=== PATIENT | male | born 1965 | race Hispanic/Latino ===

== ENCOUNTER → 2018-09-13 | Day surgery (SDC) | payer BC ==
[2018-09-11 10:12] LABS: BASOPHILS # (AUTO) 0.1 (0.0-0.1); BASOPHILS % 0.7 % (0.0-1.0); EOSINOPHILS # (AUTO) 0.3 (0.0-0.4); EOSINOPHILS % 3.6 % (0.0-6.0); HEMATOCRIT 43.5 % (38.2-49.6); HEMOGLOBIN 14.8 g/dL (14.0-18.0); LYMPHOCYTES % 23.4 % (18.0-39.1); MEAN CORPUSCULAR HEMOGLOBIN 30.8 pg (28-32); MEAN CORPUSCULAR VOLUME 90.6 fL (81-99); MONOCYTES # (AUTO) 0.9 (0.2-0.8); NEUTROPHILS # (AUTO) 5.4 (2.1-6.9); NEUTROPHILS % 61.8 % (38.7-80.0); PLATELET COUNT 229 x10e3/uL (140-360); RED CELL DISTRIBUTION WIDTH 12.4 % (11.7-14.4)
[~2018-09-13] MED LIST: ASPIRIN81 MG PO; ATORVASTATIN CA20 MG PO; BRILINTA90 MG PO; CARVEDILOL3.125 MG PO; ENTRESTO PO; KETAMINE HCL INJ 50 MG/ML 10 ML VIAL ONE; LIDOCAINE HCL 2% LOCAL INJ 5 ML SDV VIAL INJ ONE; LISINOPRIL2.5 MG PO; MIDAZOLAM HCL 2 MG/2 ML VIAL ONE; PROPOFOL IV EMULSION 10 MG/ML 50 ML VIAL ONE
--- OUTSIDE RECORDS SUMMARY | 2018-09-13 06:53 | XMS REPORT ---
[facility] Address Unknown Phone Unavailable Care Team Providers Care Certified Nursing Assistant Instructor Name Role Phone Unavailable Unavailable Payers Payer Name Policy Type Policy Number Effective Date Expiration Date Problems This patient has no known problems. Allergies, Adverse Reactions, Alerts Allergy Name Allergy Type Status Severity Reaction(s) Onset Date Inactive Date Treating Clinician Comments No Known Allergies DA Active U 2018-07-01 00:00:00 Medications This patient has no known medications.
--- OUTSIDE RECORDS SUMMARY | 2018-09-13 06:53 | XMS REPORT | Continuity of Care Document ---
Author Author [facility] Interface Address Unknown Phone Unavailable Problems Problem Status Onset Date Classification Date Reported Comments Source FOLLOW UP Active 04/26/2017 [facility] ACUTE ST ELEVATION MYOCARDIAL INFARCTION Active 04/20/2017 [facility] ST ELEVATION (STEMI) MYOCARDIAL INFARCTI Active [facility] Medications Medication Details Route Status Patient Instructions Ordering Provider Order Date Source ticagrelor 90 mg oral tablet 90 mg=1 tab, PO, Q12H, # 180 tab, 3 Refill(s), Pharmacy: [id number] Active 04/23/2017 [facility] lisinopril 5 mg oral tablet 5 mg=1 tab, PO, Daily, # 90 tab, 3 Refill(s), Pharmacy: [facility] Active 04/23/2017 [facility] carvedilol 3.125 mg oral tablet 3.125 mg=1 tab, PO, Q12H, # 180 tab, 3 Refill(s), Pharmacy: [id number] Active 04/23/2017 [facility] atorvastatin 40 mg oral tablet 40 mg=1 tab, PO, Bedtime, # 90 tab, 3 Refill(s), Pharmacy: [facility] Active 04/23/2017 [facility] aspirin 81 mg tablet, enteric coated 81 mg=1 tab, PO, Daily, # 90 tab, 3 Refill(s), Pharmacy: [id number] Active 04/23/2017 [facility] Mupirocin 1 appl, Route: NASAL, Q12H, Drug form: OINT, Start date: 04/21/17 21:00:00 CDT, Duration: 10 doses or times, Stop date: 04/26/17 9:00:00 CDT, MRSA Decolonization No Longer Active 04/22/2017 [facility] Magnesium Sulfate 1 gm, 100 mL, Route: IVPB, Drug form: INJ, PRN, Dosing Weight 107, kg, PRN Abnormal Lab Result, For NON-ICU Patients Only., Start date: 04/21/17 11:11:00 CDT, Duration: 30 day, Stop date: 05/21/17 11:10:00 CDTNotes: WASTE: F/P - Sink; E - Municipal Trash Bin No Longer Active 04/21/2017 [facility] sodium phosphate + sodium chloride 0.9% INJ 250 mL 15 mmol, 5 mL, Route: IVPB, PRN, Dosing Weight 107, kg, PRN Abnormal Lab Result, For NON-ICU Patients Only., Start date: 04/21/17 11:11:00 CDT, Duration: 30 day, Stop date: 05/21/17 11:10:00 CDT No Longer Active 04/21/2017 [facility] potassium phosphate + sodium chloride 0.9% INJ 250 mL 15 mmol, 5 mL, Route: IVPB, PRN, Dosing Weight 107, kg, PRN Abnormal Lab Result, For NON-ICU Patients Only., Start date: 04/21/17 11:11:00 CDT, Duration: 30 day, Stop date: 05/21/17 11:10:00 CDTNotes: (Same as: K Phosphate.) 1 mMol phoshate has 1.47 mEq potassium Infuse over 4 hours No Longer Active 04/21/2017 [facility] Calcium Gluconate 3 gm, 30 mL, Route: IVPB, PRN, Dosing Weight 107, kg, PRN Abnormal Lab Result, For NON-ICU Patients Only., Start date: 04/21/17 11:11:00 CDT, Duration: 30 day, Stop date: 05/21/17 11:10:00 CDTNotes: WASTE: F/P - Sink; E - Municipal Trash Bin No Longer Active 04/21/2017 [facility] Magnesium Oxide 800 mg, 2 tab, Route: PO, Drug form: TAB, PRN, Dosing Weight 107, kg, PRN Abnormal Lab Result, For NON-ICU Patients Only., Start date: 04/21/17 11:11:00 CDT, Duration: 30 day, Stop date: 05/21/17 11:10:00 CDTNotes: (Same as: Mag-Ox 400) Magnesium oxide [id number] elemental magnesium Dose=____mg magnesium oxide (___mg elemental magnesium) No Longer Active 04/21/2017 [facility] potassium phosphate-sodium phosphate 250 mg-280 mg-160 mg oral powder for reconstitution 2 pkt, Route: PO, Drug Form: PDR/REC, Dosing Weight 107, kg, PRN, PRN Abnormal Lab Result, For NON-ICU Patients Only, Start date: 04/21/17 11:11:00 CDT, Duration: 30 day, Stop date: 05/21/17 11:10:00 CDTNotes: (Same as: Phos-NaK) Each 1.5 gm pkt has 250mg phosphorous. Mix w/2.5oz water and stir. No Longer Active 04/21/2017 [facility] potassium chloride 20 mEq, 15 mL, Route: NJ, Drug form: LIQ, PRN, Dosing Weight 107, kg, PRN Abnormal Lab Result, For NON-ICU Patients Only, Start date: 04/21/17 11:11:00 CDT, Duration: 30 day, Stop date: 05/21/17 11:10:00 CDTNotes: (Same as: Potassium Chloride) No Longer Active 04/21/2017 [facility] Lisinopril 5 mg, 1 tab, Route: PO, Drug form: TAB, Daily, Dosing Weight 107.273, kg, Start date: 04/21/17 9:00:00 CDT, Duration: 30 day, Stop date: 05/20/17 9:00:00 CDTNotes: (Same as: Prinivil, Zestril) No Longer Active 04/21/2017 [facility] Aspirin 325 MG Oral Tablet 325 mg, 1 tab, Route: PO, Drug form: TAB, Daily, Dosing Weight 107.273, kg, Start date: 04/21/17 9:00:00 CDT, Duration: 30 day, Stop date: 05/20/17 9:00:00 CDTNotes: Take with food. No Longer Active 04/21/2017 [facility] Ticagrelor 90 mg, 1 tab, Route: PO, Drug form: TAB, Q12H, Dosing Weight 107.273, kg, Start date: 04/21/17 0:00:00 CDT, Duration: 30 day, Stop date: 05/20/17 12:00:00 CDTNotes: (Same as: Brilinta) No Longer Active 04/21/2017 [facility] heparin 5,000 unit, 1 mL, Route: SUB-Q, Drug form: INJ, Q12H, Dosing Weight 107.273, kg, Start date: 04/20/17 21:00:00 CDT, Duration: 30 day, Stop date: 05/20/17 9:00:00 CDTNotes: porcine heparin No Longer Active 04/21/2017 [facility] Docusate Sodium 100 MG Oral Capsule 100 mg, 1 cap, Route: PO, Drug form: CAP, Q12H, Dosing Weight 107.273, kg, Start date: 04/20/17 21:00:00 CDT, Duration: 30 day, Stop date: 05/20/17 9:00:00 CDTNotes: (Same as: Colace) (Do Not Crush) No Longer Active 04/21/2017 [facility] atorvastatin 40 mg, 1 tab, Route: PO, Drug form: TAB, Bedtime, Dosing Weight 107.273, kg, Start date: 04/20/17 21:00:00 CDT, Duration: 30 day, Stop date: 05/19/17 21:00:00 CDTNotes: (Same as: Lipitor) No Longer Active 04/21/2017 [facility] carvedilol 3.125 mg, 1 tab, Route: PO, Drug form: TAB, Q12H, Dosing Weight 107.273, kg, Start date: 04/20/17 21:00:00 CDT, Duration: 30 day, Stop date: 05/20/17 9:00:00 CDTNotes: Give with food. (Same As: Coreg) No Longer Active 04/21/2017 [facility] pantoprazole 40 mg, 1 tab, Route: PO, Drug form: ECTAB, Before Dinner, Dosing Weight 107.273, kg, Start date: 04/20/17 16:30:00 CDT, Duration: 30 day, Stop date: 05/19/17 16:30:00 CDTNotes: Tablet should not be c hewed or crushed. (Same as: Protonix) No Longer Active 04/20/2017 [facility] Aspirin 81 MG Chewable Tablet 324 mg, 4 tab, Route: PO, Drug form: CHEWTAB, ONCALL, Dosing Weight 107, kg, Start date: 04/20/17 15:00:00 CDT, Duration: 30 day, Stop date: 05/20/17 14:59:00 CDT Inactive 04/20/2017 [facility] Zofran 4 mg, 2 mL, Route: IVP, Drug form: INJ, Q8H, Dosing Weight 107, kg, PRN Nausea, Start date: 04/20/17 14:38:00 CDT, Duration: 30 day, Stop date: 05/20/17 14:37:00 CDTNotes: (Same as: Zofran) MEDICATION WASTE Product Size: 4 mg Product Wasted: ___ mg No Longer Active 04/20/2017 [facility] Tylenol 650 mg, 2 tab, Route: PO, Drug form: TAB, Q6H, Dosing Weight 107, kg, PRN Pain Score 1-3, Start date: 04/20/17 14:38:00 CDT, Duration: 30 day, Stop date: 05/20/17 14:37:00 CDTNotes: Do not exceed 4 gm/day. (Same as: Tylenol) No Longer Active 04/20/2017 [facility] Ticagrelor 180 mg, Route: PO, Drug form: TAB, ONCE, Dosing Weight 107.273, kg, Loading dose, Start date: 04/20/17 14:38:00 CDT, Stop date: 04/20/17 14:38:00 CDT Inactive 04/20/2017 [facility] Tessalon Perles 200 mg, 2 cap, Route: PO, Drug form: CAP, TID, Dosing Weight 107, kg, PRN Cough, Start date: 04/20/17 14:37:00 CDT, Duration: 30 day, Stop date: 05/20/17 14:36:00 CDTNotes: (Same As: Tessalon Perles) "Do Not Crush" No Longer Active 04/20/2017 [facility] Dulcolax Laxative 5 mg, 1 tab, Route: PO, Drug form: ECTAB, ONCE, Dosing Weight 107, kg, PRN Constipation, Start date: 04/20/17 14:37:00 CDTNotes: (Same As: Dulcolax, Correctol) (Do Not Crush) "Do Not Crush" No Longer Active 04/20/2017 [facility] Benzocaine 15 MG / Menthol 3.6 MG Lozenge [Cepacol Sore Throat Pain Relief 15/3.6] 1 lozenge, Route: MUCOUS MEM, Drug Form: SILVIA, Dosing Weight 107, kg, Q2H, PRN Sore Throat, Start date: 04/20/17 14:37:00 CDT, Duration: 30 day, Stop date: 05/20/17 14:36:00 CDTNotes: Same as: Cepacol No Longer Active 04/20/2017 [facility] Hydralazine 10 mg, 0.5 mL, Route: IV, Drug form: INJ, Q6H, Dosing Weight 107, kg, PRN Hypertension, Start date: 04/20/17 13:05:00 CDT, Duration: 30 day, Stop date: 05/20/17 13:04:00 CDTNotes: (Same as: Apresoline) Push over 5 minutes No Longer Active 04/20/2017 [facility] Ticagrelor 180 mg, 2 tab, Route: PO, Drug form: TAB, ONCE, Dosing Weight 107.273, kg, Loading dose, Start date: 04/20/17 11:50:00 CDT, Stop date: 04/20/17 11:50:00 CDTNotes: (Same as: Brilinta) Inactive 04/20/2017 [facility] Nitroglycerin 0.4 mg, 1 tab, Route: SL, Drug form: TAB, Q5Min, Dosing Weight 107.273, kg, PRN Chest Pain, Start date: 04/20/17 11:40:00 CDT, Duration: 3 doses or times, Stop date: Limited # of timesNotes: (Same as:Oliver Hicks) "Do Not Crush" Sublingual tablet No Longer Active 04/20/2017 [facility] Morphine 2 mg, 1 mL, Route: IVP, Drug form: INJ, Q2H, Dosing Weight 107.273, kg, PRN Pain Score 4-6, Start date: 04/20/17 11:40:00 CDT, Duration: 30 day, Stop date: 05/20/17 11:39:00 CDTNotes: (Same as:MORPhine Sulfate) No Longer Active 04/20/2017 [facility] Acetaminophen 325 MG / Hydrocodone Bitartrate 5 MG Oral Tablet 2 tab, Route: PO, Drug Form: TAB, Dosing Weight 107.273, kg, Q4H, PRN Pain Score 7-10, Start date: 04/20/17 11:40:00 CDT, Duration: 30 day, Stop date: 05/20/17 11:39:00 CDTNotes: (Same as: [place] 325/5) Do not exceed 4gm/day of acetaminophen. No Longer Active 04/20/2017 [facility] Temazepam 15 mg, 1 cap, Route: PO, Drug form: CAP, Bedtime, Dosing Weight 107.273, kg, PRN Insomnia, Start date: 04/20/17 11:40:00 CDT, Duration: 30 day, Stop date: 05/20/17 11:39:00 CDTNotes: (Same As: Restoril) No Longer Active 04/20/2017 [facility] Acetaminophen 650 mg, 2 tab, Route: PO, Drug form: TAB, Q4H, Dosing Weight 107.273, kg, PRN Pain Score 1-3, Start date: 04/20/17 11:40:00 CDT, Duration: 30 day, Stop date: 05/20/17 11:39:00 CDTNotes: Do not exceed 4 gm/day. (Same as: Tylenol) Inactive 04/20/2017 [facility] Ondansetron 4 mg, 1 tab, Route: PO, Drug form: TAB, Q8H, Dosing Weight 107.273, kg, PRN Nausea & Vomiting, Start date: 04/20/17 11:40:00 CDT, Duration: 30 day, Stop date: 05/20/17 11:39:00 CDTNotes: (Same as: Zofran) No Longer Active 04/20/2017 [facility] Bisacodyl 10 mg, 1 supp, Route: NV, Drug form: SUPP, Q24H, Dosing Weight 107.273, kg, PRN Constipation, Start date: 04/20/17 11:40:00 CDT, Duration: 30 day, Stop date: 05/20/17 11:39:00 CDTNotes: (Same As: Dulcolax, Bisco-Lax) No Longer Active 04/20/2017 [facility] Sodium Chloride 0.154 MEQ/ML Injectable Solution 750 mL, Rate: 75 ml/hr, Infuse over: 10 hr, Route: IV, Dosing Weight 107.273 kg, Total Volume: 750, Start date: 04/20/17 11:40:00 CDT, Duration: 10 hr, Stop date: 04/20/17 21:39:00 CDT Inactive 04/20/2017 [facility] potassium chloride 20 mEq, 1 tab, Route: PO, Drug form: ERTAB, PRN, Dosing Weight 107.273, kg, PRN Abnormal Lab Result, Start date: 04/20/17 11:35:00 CDT, Duration: 30 day, Stop date: 05/20/17 11:34:00 CDT, FOR ICU USE ONLYNotes: (Same as: Carlos-Efren 20) "Do Not Crush" With food and full glass of water No Longer Active 04/20/2017 [facility] Calcium Carbonate 500 MG Chewable Tablet 1,000 mg, 2 tab, Route: PO, Drug form: CHEWTAB, PRN, Dosing Weight 107.273, kg, PRN Abnormal Lab Result, FOR ICU USE ONLY, Start date: 04/20/17 11:35:00 CDT, Duration: 30 day, Stop date: 05/20/17 11:34:00 CDTNotes: (Same As: Shanel) Calcium Carbonate 500 ee=110 mg elemental calcium Dose= mg calcium carbonate ( mg elemental calcium) No Longer Active 04/20/2017 [facility] Calcium Gluconate 1 gm, 10 mL, Route: IVPB, PRN, Dosing Weight 107.273, kg, PRN Abnormal Lab Result, Start date: 04/20/17 11:35:00 CDT, Duration: 30 day, Stop date: 05/20/17 11:34:00 CDT, FOR ICU USE ONLYNotes: WASTE: F/P - Sink; E - Municipal Trash Bin No Longer Active 04/20/2017 [facility] Magnesium Sulfate 2 gm, 50 mL, Route: IVPB, Drug form: INJ, PRN, Dosing Weight 107.273, kg, PRN Abnormal Lab Result, Start date: 04/20/17 11:35:00 CDT, Duration: 30 day, Stop date: 05/20/17 11:34:00 CDT, FOR ICU USE ONLYNotes: WASTE: F/P - Sink; E - Municipal Trash Bin No Longer Active 04/20/2017 [facility] Magnesium Oxide 800 mg, 2 tab, Route: PO, Drug form: TAB, PRN, Dosing Weight 107.273, kg, PRN Abnormal Lab Result, FOR ICU USE ONLY, Start date: 04/20/17 11:35:00 CDT, Duration: 30 day, Stop date: 05/20/17 11:34:00 CDTNotes: (Same as: Mag-Ox 400) Magnesium oxide [id number] elemental magnesium Dose=____mg magnesium oxide (___mg elemental magnesium) No Longer Active 04/20/2017 [facility] potassium phosphate + sodium chloride 0.9% INJ 250 mL 30 mmol, 10 mL, Route: IVPB, PRN, Dosing Weight 107.273, kg, PRN Abnormal Lab Result, Start date: 04/20/17 11:35:00 CDT, Duration: 30 day, Stop date: 05/20/17 11:34:00 CDT, FOR ICU USE ONLYNotes: (Same as: K Phosphate.) 1 mMol phoshate has 1.47 mEq potassium Infuse over 4 hours No Longer Active 04/20/2017 [facility] potassium phosphate-sodium phosphate 250 mg-280 mg-160 mg oral powder for reconstitution 2 pkt, Route: PO, Drug Form: PDR/REC, Dosing Weight 107.273, kg, PRN, PRN Abnormal Lab Result, FOR ICU USE ONLY, Start date: 04/20/17 11:35:00 CDT, Duration: 30 day, Stop date: 05/20/17 11:34:00 CDTNotes: (Same as: Phos-NaK) Each 1.5 gm pkt has 250mg phosphorous. Mix w/2.5oz water and stir. No Longer Active 04/20/2017 [facility] sodium phosphate + sodium chloride 0.9% INJ 250 mL 45 mmol, 15 mL, Route: IVPB, PRN, Dosing Weight 107.273, kg, PRN Abnormal Lab Result, Start date: 04/20/17 11:35:00 CDT, Duration: 30 day, Stop date: 05/20/17 11:34:00 CDT, FOR ICU USE ONLY No Longer Active 04/20/2017 [facility] Heparin - one time bolus for ACS 4,000 unit, 4 mL, Route: IVP, Drug form: INJ, ONCE, kg, Priority: STAT, Start date: 04/20/17 10:44:00 CDT, Stop date: 04/20/17 10:44:00 CDT Inactive 04/20/2017 [facility] Heparin 60 unit/kg Bolus (Heparin Dosing Weight) Pharmacy To Manage, Route: IVP, PRN, Drug form: INJ, PRN, Heparin Protocol, Start date: 04/20/17 10:44:00 CDT Stop date: 05/20/17 10:43:00 CDT, 30 day No Longer Active 04/20/2017 [facility] Heparin 30 unit/kg Bolus (Heparin Dosing Weight) Pharmacy To Manage, Route: IVP, PRN, Drug form: INJ, PRN, Heparin Protocol, Start date: 04/20/17 10:44:00 CDT Stop date: 05/20/17 10:43:00 CDT, 30 day No Longer Active 04/20/2017 [facility] heparin additive 25,000 unit [12 unit/kg/hr] + Premix Diluent Dextrose 5% 500 mL 500 mL, Route: IV, Total Volume: 500 mL, Start date: 04/20/17 10:44:00 CDT, Duration: 30 day, Stop date: 05/20/17 10:43:00 CDT No Longer Active 04/20/2017 [facility] Saline Flush 0.9% 10 mL, Route: IVP, Drug Form: INJ, kg, PRN, PRN Line Flush, Start date: 04/20/17 10:44:00 CDT, Duration: 30 day, Stop date: 05/20/17 10:43:00 CDTNotes: Same as: BD Posiflush Sterile No Longer Active 04/20/2017 [facility] Sodium Chloride 0.154 MEQ/ML Injectable Solution 250 mL, 250 ml/hr, Infuse Over: 1 hr, Route: IV, 250, Drug form: INJ, ONCE, Priority: STAT, kg, Start date: 04/20/17 10:44:00 CDT, Duration: 1 doses or times, Stop date: 04/20/17 10:44:00 CDT Inactive 04/20/2017 [facility] Aspirin 81 MG Chewable Tablet 324 mg=4 tab, PO, ONCALL No Longer Active 04/20/2017 [facility] Allergies, Adverse Reactions, Alerts Substance Category Reaction Severity Reaction type Status Date Reported Comments Source Immunizations Immunization Date Given Site Status Last Updated Comments Source pneumococcal 23-valent vaccine 04/21/2017 Right Deltoid completed Arash [facility] Results Order Name Results Value Reference Range Date Interpretation Comments Source CHEM PANEL Magnesium Lvl 2.2 mg/dL 1.8 - 2.4 04/23/2017 [facility] CHEM PANEL Phosphorus 4.6 mg/dL 2.5 - 4.5 04/23/2017 [facility] ELECTROLYTES Potassium Lvl 4.2 meq/L 3.5 - 5.1 04/23/2017 [facility] HEMATOLOGY MPV 9.1 fL 7.4 - 10.4 04/23/2017 [facility] HEMATOLOGY RDW 13.2 % 11.5 - 14.5 04/23/2017 [facility] HEMATOLOGY Platelet 204 K/CMM 133 - 450 04/23/2017 [facility] HEMATOLOGY MCHC 33.7 g/dL 32.0 - 36.0 04/23/2017 [facility] HEMATOLOGY Hgb 14.7 g/dL 14.0 - 18.0 04/23/2017 [facility] HEMATOLOGY MCH 29.8 pg 27.0 - 31.0 04/23/2017 [facility] HEMATOLOGY MCV 88.4 fL 80.0 - 94.0 04/23/2017 [facility] HEMATOLOGY RBC 4.93 M/CMM 4.70 - 6.10 04/23/2017 [facility] HEMATOLOGY Hct 43.6 % 42.0 - 54.0 04/23/2017 [facility] HEMATOLOGY WBC 11.8 K/CMM 3.7 - 10.4 04/23/2017 [facility] HEMATOLOGY Eosinophils 1.7 % 0.0 - 4.0 04/23/2017 [facility] HEMATOLOGY Segs 61.4 % 45.0 - 75.0 04/23/2017 [facility] HEMATOLOGY Monocytes 11.8 % 2.0 - 12.0 04/23/2017 [facility] HEMATOLOGY Lymphocytes 24.8 % 20.0 - 40.0 04/23/2017 [facility] HEMATOLOGY Basophils 0.3 % 0.0 - 1.0 04/23/2017 [facility] HEMATOLOGY Lymphocytes # 2.9 K/CMM 1.0 - 5.5 04/23/2017 [facility] HEMATOLOGY Eosinophils # 0.2 K/CMM 0.0 - 0.5 04/23/2017 [facility] HEMATOLOGY Segs-Bands # 7.3 K/CMM 1.5 - 8.1 04/23/2017 [facility] HEMATOLOGY Monocytes # 1.4 K/CMM 0.0 - 0.8 04/23/2017 [facility] CHEM PANEL Phosphorus 3.9 mg/dL 2.5 - 4.5 04/22/2017 [facility] CHEM PANEL Magnesium Lvl 2.2 mg/dL 1.8 - 2.4 04/22/2017 [facility] HEMATOLOGY Segs-Bands # 8.8 K/CMM 1.5 - 8.1 04/22/2017 [facility] HEMATOLOGY Lymphocytes # 2.0 K/CMM 1.0 - 5.5 04/22/2017 [facility] HEMATOLOGY Monocytes # 1.4 K/CMM 0.0 - 0.8 04/22/2017 [facility] HEMATOLOGY Eosinophils 1.4 % 0.0 - 4.0 04/22/2017 [facility] HEMATOLOGY Basophils 0.4 % 0.0 - 1.0 04/22/2017 [facility] HEMATOLOGY Eosinophils # 0.2 K/CMM 0.0 - 0.5 04/22/2017 [facility] HEMATOLOGY Basophils # 0.1 K/CMM 0.0 - 0.2 04/22/2017 [facility] HEMATOLOGY Lymphocytes 16.3 % 20.0 - 40.0 04/22/2017 [facility] HEMATOLOGY Segs 70.5 % 45.0 - 75.0 04/22/2017 [facility] HEMATOLOGY Monocytes 11.4 % 2.0 - 12.0 04/22/2017 [facility] HEMATOLOGY WBC 12.5 K/CMM 3.7 - 10.4 04/22/2017 [facility] HEMATOLOGY RBC 5.03 M/CMM 4.70 - 6.10 04/22/2017 [facility] HEMATOLOGY MCHC 34.6 g/dL 32.0 - 36.0 04/22/2017 [facility] HEMATOLOGY MCH 30.3 pg 27.0 - 31.0 04/22/2017 [facility] HEMATOLOGY MCV 87.4 fL 80.0 - 94.0 04/22/2017 [facility] HEMATOLOGY MPV 8.9 fL 7.4 - 10.4 04/22/2017 [facility] HEMATOLOGY Platelet 205 K/CMM 133 - 450 04/22/2017 [facility] HEMATOLOGY RDW 12.9 % 11.5 - 14.5 04/22/2017 [facility] HEMATOLOGY Hct 44.0 % 42.0 - 54.0 04/22/2017 [facility] HEMATOLOGY Hgb 15.2 g/dL 14.0 - 18.0 04/22/2017 [facility] CHEM PANEL Phosphorus 3.9 mg/dL 2.5 - 4.5 04/21/2017 [facility] CHEM PANEL Magnesium Lvl 2.0 mg/dL 1.8 - 2.4 04/21/2017 [facility] ELECTROLYTES Potassium Lvl 4.0 meq/L 3.5 - 5.1 04/21/2017 [facility] HEMATOLOGY MCH 30.0 pg 27.0 - 31.0 04/21/2017 [facility] HEMATOLOGY MCHC 34.4 g/dL 32.0 - 36.0 04/21/2017 [facility] HEMATOLOGY RDW 13.0 % 11.5 - 14.5 04/21/2017 [facility] HEMATOLOGY Hgb 15.5 g/dL 14.0 - 18.0 04/21/2017 [facility] HEMATOLOGY Hct 45.0 % 42.0 - 54.0 04/21/2017 [facility] HEMATOLOGY MCV 87.2 fL 80.0 - 94.0 04/21/2017 [facility] HEMATOLOGY WBC 14.9 K/CMM 3.7 - 10.4 04/21/2017 [facility] HEMATOLOGY RBC 5.17 M/CMM 4.70 - 6.10 04/21/2017 [facility] HEMATOLOGY Platelet 218 K/CMM 133 - 450 04/21/2017 [facility] HEMATOLOGY MPV 8.9 fL 7.4 - 10.4 04/21/2017 [facility] HEMATOLOGY Segs-Bands # 10.0 K/CMM 1.5 - 8.1 04/21/2017 [facility] HEMATOLOGY Lymphocytes # 3.1 K/CMM 1.0 - 5.5 04/21/2017 [facility] HEMATOLOGY Monocytes # 1.6 K/CMM 0.0 - 0.8 04/21/2017 [facility] HEMATOLOGY Eosinophils # 0.1 K/CMM 0.0 - 0.5 04/21/2017 [facility] HEMATOLOGY Basophils # 0.1 K/CMM 0.0 - 0.2 04/21/2017 [facility] HEMATOLOGY Segs 67.7 % 45.0 - 75.0 04/21/2017 [facility] HEMATOLOGY Lymphocytes 20.6 % 20.0 - 40.0 04/21/2017 [facility] HEMATOLOGY Monocytes 10.8 % 2.0 - 12.0 04/21/2017 [facility] HEMATOLOGY Eosinophils 0.6 % 0.0 - 4.0 04/21/2017 [facility] HEMATOLOGY Basophils 0.3 % 0.0 - 1.0 04/21/2017 [facility] LIPIDS CHD Risk 5.58 4.00 - 7.30 04/21/2017 [facility] LIPIDS VLDL 31 04/21/2017 [facility] LIPIDS LDL (Calculated) 111 mg/dL <=99 mg/dL 04/21/2017 [facility] LIPIDS Trig 155 mg/dL <=149 mg/dL 04/21/2017 [facility] LIPIDS Chol 173 mg/dL <=199 mg/dL 04/21/2017 [facility] LIPIDS HDL 31 mg/dL >=61 mg/dL 04/21/2017 [facility] CARDIAC ENZYMES CK MB 201.5 ng/mL 0.5 - 3.6 04/20/2017 [facility] CARDIAC ENZYMES CK MB Index 9.0 0.0 - 2.5 04/20/2017 [facility] CARDIAC ENZYMES Total CK 2251 unit/L 12 - 191 04/20/2017 [facility] CARDIAC ENZYMES Troponin-I >40 ng/mL 0.00 - 0.40 04/20/2017 Result Comment: Critical Result(s) called to Jayne Ayala at 04/20/2017 19:32 by Jeff Brannon. Read back OK. [facility] ELECTROLYTES Potassium Lvl 4.0 meq/L 3.5 - 5.1 04/20/2017 [facility] CHEM PANEL eGFR 84 mL/min/1.73m2 04/20/2017 Result Comment: The eGFR is calculated using the CKD-EPI formula. In most young, healthy individuals the eGFR will be >90 mL/min/1.73m2. The eGFR declines with age. An eGFR of 60-89 may be normal in some populations, particularly the elderly, for whom the CKD-EPI formula has not been extensively validated. Use of the eGFR is not recommended in the following populations: Individuals with unstable creatinine concentrations, including patients and those with serious co-morbid conditions. Patients with extremes in muscle mass or diet. The data above are obtained from the National Kid[employer] Disease Education Program (NKDEP) which additionally recommends that when the eGFR is used in patients with extremes of body mass index for purposes of drug dosing, the eGFR should be multiplied by the estimated BMI. [facility] CHEM PANEL Creatinine Lvl 1.04 mg/dL 0.50 - 1.40 04/20/2017 [facility] CARDIAC ENZYMES CK MB Index 9.6 0.0 - 2.5 04/20/2017 [facility] CARDIAC ENZYMES CK MB 211.4 ng/mL 0.5 - 3.6 04/20/2017 [facility] [place] CARDIAC ENZYMES Total CK 2194 unit/L 12 - 191 04/20/2017 [facility] CARDIAC ENZYMES Troponin-I >40 ng/mL 0.00 - 0.40 04/20/2017 Result Comment: Critical Result(s) called to _Ludwin Poon at 04/20/2017 15:37_ by_Nadeem Hill. Read back OK. [facility] CARDIAC ENZYMES Troponin-I 0.09 ng/mL 0.00 - 0.40 04/20/2017 [facility] CARDIAC ENZYMES BNP 2 pg/mL <=100 pg/mL 04/20/2017 [facility] CARDIAC ENZYMES Total CK 213 unit/L 12 - 04/20/2017 [facility] CARDIAC ENZYMES CK MB 1.4 ng/mL 0.5 - 3.6 04/20/2017 [facility] CARDIAC ENZYMES CK MB Index 0.7 0.0 - 2.5 04/20/2017 [facility] CHEM PANEL eGFR 105 mL/min/1.73m2 04/20/2017 Result Comment: The eGFR is calculated using the CKD-EPI formula. In most young, healthy individuals the eGFR will be >90 mL/min/1.73m2. The eGFR declines with age. An eGFR of 60-89 may be normal in some populations, particularly the elderly, for whom the CKD-EPI formula has not been extensively validated. Use of the eGFR is not recommended in the following populations: Individuals with unstable creatinine concentrations, including patients and those with serious co-morbid conditions. Patients with extremes in muscle mass or diet. The data above are obtained from the National Kidney Disease Education Program (NKDEP) which additionally recommends that when the eGFR is used in patients with extremes of body mass index for purposes of drug dosing, the eGFR should be multiplied by the estimated BMI. [facility] CHEM PANEL CO2 24 meq/L 24 - 32 04/20/2017 [facility] CHEM PANEL Calcium Lvl 8.6 mg/dL 8.5 - 10.5 04/20/2017 [facility] CHEM PANEL AGAP 13.8 meq/L 10.0 - 20.0 04/20/2017 [facility] CHEM PANEL Glucose Lvl 127 mg/dL 70 - 99 04/20/2017 [facility] CHEM PANEL Chloride Lvl 106 meq/L 95 - 109 04/20/2017 [facility] CHEM PANEL BUN 18 mg/dL 7 - 22 04/20/2017 [facility] CHEM PANEL Sodium Lvl 140 meq/L 135 - 145 04/20/2017 [facility] CHEM PANEL Creatinine Lvl 0.80 mg/dL 0.50 - 1.40 04/20/2017 [facility] HEMATOLOGY PTT 25.7 s 22.9 - 35.8 04/20/2017 [facility] HEMATOLOGY INR 1.09 0.85 - 1.17 04/20/2017 [facility] HEMATOLOGY PT 14.3 s 12.0 - 14.7 04/20/2017 [facility] HEMATOLOGY Basophils # 0.1 K/CMM 0.0 - 0.2 04/20/2017 [facility] Chest 1view DX Chest 1view DX Patient Name: MAYRA LOERA : 1965; Age: 51 years Male MR: [id number] Study: Chest 1view DX Order Time: 04/20/2017 1:48 PM CDT Clinical Indication: - s/p stemi. COMPARISON: None FINDINGS: Views: 1 LUNGS: There is normal lung volume. There are no suspicious interstitial/airspace opacities. There are no pleural effusions. There is no pneumothorax. The pulmonary vasculature is normal. MEDIASTINUM: The cardiac silhouette is normal. The trachea is midline. BONES: There are no clinically significant osseous abnormalities noted. IMPRESSION: No radiographic evidence of acute pulmonary disease. SL: [id number] 04/20/2017 - - Read by: Wenceslao Gasca MD Dictated Date/time: 04/20/17 14:28 Electronically Signed by: Wenceslao Gasca MD 04/20/17 14:28 FINAL REPORT [facility] Vital Signs Vital Sign Value Date Comments Source BMI Calculated 32.84 04/27/2017 [facility] Weight 106.818 04/27/2017 [facility] Height 180.34 cm 04/27/2017 [facility] Heart Rate 73 04/27/2017 [facility] Systolic (mm Hg) 125 04/27/2017 [facility] Diastolic (mm Hg) 76 04/27/2017 [facility] Respitory Rate 22 04/23/2017 [facility] Respitory Rate 19 04/23/2017 [facility] Temperature Oral (F) 98.7 F 04/23/2017 [facility] Systolic (mm Hg) 108 04/23/2017 [facility] Diastolic (mm Hg) 62 04/23/2017 [facility] Respitory Rate 15 04/23/2017 [facility] Temperature Oral (F) 98.0 F 04/23/2017 [facility] Systolic (mm Hg) 98 04/23/2017 [facility] Diastolic (mm Hg) 68 04/23/2017 [facility] Temperature Oral (F) 98.6 F 04/23/2017 [facility] Systolic (mm Hg) 104 04/23/2017 [facility] Diastolic (mm Hg) 62 04/23/2017 [facility] BMI Calculated 32.9 04/20/2017 [facility] Weight 107 04/20/2017 [facility] Height 180.34 cm 04/20/2017 [facility] BMI Calculated 32.98 04/20/2017 [facility] Weight 107.273 04/20/2017 [facility] Heart Rate 68 04/20/2017 [facility] Height 180.34 cm 04/20/2017 [facility] Encounters Location Location Details Encounter Type Encounter Number Reason For Visit Attending Provider ADM Date DC Date Status Source [facility] Inpatient [id number] Mayra Thorne 04/20/2017 04/23/2017 [facility] Community Cardiology [facility] Outpatient [id number] Quintin Claudio 04/27/2017 04/28/2017 [facility] Procedures Procedure Code Date Perfomer Comments Source
--- OUTSIDE RECORDS SUMMARY | 2018-09-13 06:53 | XMS REPORT | Summary of Care ---
Author Author [facility] Organization [facility] Address Unknown Phone Unavailable Encounter [facility](APP[employer]) [id number] Date(s): 04/27/17 - 04/27/17 [facility] [address] [place], [place] [address] [phone] Discharge Disposition: Home or Self Care Attending Physician: Quintin Claudio DO Referring Physician: Quintin Claudio DO Vital Signs Most recent to 1 oldest [Reference Range]: Height 180.34 cm (04/27/17 10:51 AM) Blood Pressure 125/76 mmHg [90-140/60-90 mmHg] (04/27/17 10:51 AM) Peripheral Pulse 73 bpm Rate [60-100 bpm] (04/27/17 10:51 AM) Weight 106.818 kg (04/27/17 10:51 AM) Body Mass Index 32.84 m2 (04/27/17 10:51 AM) Problem List No data available for this section Allergies, Adverse Reactions, Alerts Substance Reaction Severity Status NKDA Active Medications No Known Medications Results No data available for this section Immunizations Given and Recorded Vaccine Date Status Refusal Reason pneumococcal 23-valent vaccine 04/21/17 Given Procedures No data available for this section Social History Social History Type Response Smoking Status Current every day smoker; Type: Cigarettes; Previous treatment: None; Ready to change: Yes; Concerns about tobacco use in household: No; Exposure to Tobacco Smoke None; Cigarette Smoking Last 365 Days Yes; Reg Smoking Cessation Counseling No Assessment and Plan No data available for this section
--- OUTSIDE RECORDS SUMMARY | 2018-09-13 06:53 | XMS REPORT | Summary of Care ---
Author Author [facility] Organization [facility] Address Unknown Phone Unavailable Encounter [employer](APPLE) [id number] Date(s): 04/20/17 - 04/23/17 [facility] [address] [place] [address]- [phone] Discharge Disposition: Home or Self Care Attending Physician: Mayra Thorne MD Admitting Physician: Mayra Thorne MD Vital Signs 1 2 3 Most recent to oldest [Reference Range]: 180.34 cm (04/20/17 12:31 PM) 180.34 cm (04/20/17 10:35 AM) Height 109.801 kg (04/21/17 4:06 AM) Current Weight 98.7 DegF (04/23/17 8:00 AM) 98.0 DegF (04/23/17 4:40 AM) 98.6 DegF (04/23/17 12:17 AM) Temperature Oral [96.4-99.1 DegF] 108/62 mmHg (04/23/17 8:00 AM) 98/68 mmHg (04/23/17 2:13 AM) 104/62 mmHg (04/22/17 11:14 PM) Blood Pressure [90-140/60-90 mmHg] 22 BRMIN *HI* (04/23/17 10:55 AM) 19 BRMIN (04/23/17 8:00 AM) 15 BRMIN (04/23/17 5:41 AM) Respiratory Rate [14-20 BRMIN] 68 bpm (04/20/17 10:35 AM) Peripheral Pulse Rate [60-100 bpm] 107 kg (04/20/17 12:31 PM) 107.273 kg (04/20/17 10:35 AM) Weight 32.9 m2 (04/20/17 12:31 PM) 32.98 m2 (04/20/17 10:35 AM) Body Mass Index Problem List No data available for this section Allergies, Adverse Reactions, Alerts Substance Reaction Severity Status NKDA Active Medications acetaminophen 650 mg, 2 tab, Route: PO, Drug form: TAB, Q4H, Dosing Weight 107.273, kg, PRN Pa in Score 1-3, Start date: 04/20/17 11:40:00 CDT, Duration: 30 day, Stop date: 11:39:00 CDT Notes: Do not exceed 4 gm/day. (Same as: Tylenol) Start Date: 04/20/17 Stop Date: 04/20/17 Status: Deleted acetaminophen-hydrocodone 325 mg-5 mg oral tablet 2 tab, Route: PO, Drug Form: TAB, Dosing Weight 107.273, kg, Q4H, PRN Pain Score 7-10, Start date: 04/20/17 11:40:00 CDT, Duration: 30 day, Stop date: 05/20/17 11:39:00 CDT Notes: (Same as: [place] 325/5) Do not exceed 4gm/day of acetaminophen. Start Date: 04/20/17 Stop Date: 04/23/17 Status: Discontinued acetaminophen-hydrocodone 325 mg-5 mg oral tablet 1 tab, Route: PO, Drug Form: TAB, Dosing Weight 107.273, kg, Q4H, PRN Pain Score 4-6, Start date: 04/20/17 11:40:00 CDT, Duration: 30 day, Stop date: 05/20/17 1 1:39:00 CDT Notes: (Same as: [place] 325/5) Do not exceed 4gm/day of acetaminophen. Start Date: 04/20/17 Stop Date: 04/23/17 Status: Discontinued aspirin 325 mg tablet 325 mg, 1 tab, Route: PO, Drug form: TAB, Daily, Dosing Weight 107.273, kg, Star t date: 04/21/17 9:00:00 CDT, Duration: 30 day, Stop date: 05/20/17 9:00:00 CDT Notes: Take with food. Start Date: 04/21/17 Stop Date: 04/23/17 Status: Discontinued aspirin 81 mg tablet, chewable 324 mg, 4 tab, Route: PO, Drug form: CHEWTAB, ONCALL, Dosing Weight 107, kg, Sta rt date: 04/20/17 15:00:00 CDT, Duration: 30 day, Stop date: 05/20/17 14:59:00 C DT Start Date: 04/20/17 Stop Date: 04/20/17 Status: Canceled aspirin 81 mg tablet, chewable 324 mg=4 tab, PO, ONCALL Start Date: 04/20/17 Stop Date: 04/23/17 Status: Discontinued aspirin 81 mg tablet, enteric coated 81 mg=1 tab, PO, Daily, # 90 tab, 3 Refill(s), Pharmacy: [id number] Start Date: 04/23/17 Status: Ordered atorvastatin 40 mg, 1 tab, Route: PO, Drug form: TAB, Bedtime, Dosing Weight 107.273, kg, Sta rt date: 04/20/17 21:00:00 CDT, Duration: 30 day, Stop date: 05/19/17 21:00:00 C DT Notes: (Same as: Lipitor) Start Date: 04/20/17 Stop Date: 04/23/17 Status: Discontinued atorvastatin 40 mg oral tablet 40 mg=1 tab, PO, Bedtime, # 90 tab, 3 Refill(s), Pharmacy: [id number] Start Date: 04/23/17 Status: Ordered bisacodyl 10 mg, 1 supp, Route: VA, Drug form: SUPP, Q24H, Dosing Weight 107.273, kg, PRN Constipation, Start date: 04/20/17 11:40:00 CDT, Duration: 30 day, Stop date: 11:39:00 CDT Notes: (Same As: Dulcolax, Bisco-Lax) Start Date: 04/20/17 Stop Date: 04/23/17 Status: Discontinued calcium carbonate 500 mg (200 mg elemental calcium) oral tablet 1,000 mg, 2 tab, Route: PO, Drug form: CHEWTAB, PRN, Dosing Weight 107.273, kg, PRN Abnormal Lab Result, FOR ICU USE ONLY, Start date: 04/20/17 11:35:00 CDT, Du ration: 30 day, Stop date: 05/20/17 11:34:00 CDT Notes: (Same As: Tums)Calcium Carbonate 500 jr=446 mg elemental calcium Dose=_ mg calcium carbonate ( mg elemental calcium) Start Date: 04/20/17 Stop Date: 04/21/17 Status: Discontinued calcium carbonate 500 mg (200 mg elemental calcium) oral tablet 500 mg, 1 tab, Route: PO, Drug form: CHEWTAB, PRN, Dosing Weight 107.273, kg, VA N Abnormal Lab Result, FOR ICU USE ONLY, Start date: 04/20/17 11:35:00 CDT, Dura tion: 30 day, Stop date: 05/20/17 11:34:00 CDT Notes: (Same As: Tums)Calcium Carbonate 500 da=474 mg elemental calcium Dose=_ mg calcium carbonate ( mg elemental calcium) Start Date: 04/20/17 Stop Date: 04/21/17 Status: Discontinued calcium gluconate + sodium chloride 0.9% INJ 100 mL 3 gm, 30 mL, Route: IVPB, PRN, Dosing Weight 107, kg, PRN Abnormal Lab Result, F or NON-ICU Patients Only., Start date: 04/21/17 11:11:00 CDT, Duration: 30 day, Stop date: 05/21/17 11:10:00 CDT Notes: WASTE: F/P - Sink; E - Municipal Trash Bin Start Date: 04/21/17 Stop Date: 04/23/17 Status: Discontinued calcium gluconate + sodium chloride 0.9% INJ 100 mL 2 gm, 20 mL, Route: IVPB, PRN, Dosing Weight 107, kg, PRN Abnormal Lab Result, F or NON-ICU Patients Only., Start date: 04/21/17 11:11:00 CDT, Duration: 30 day, Stop date: 05/21/17 11:10:00 CDT Notes: WASTE: F/P - Sink; E - Municipal Trash Bin Start Date: 04/21/17 Stop Date: 04/23/17 Status: Discontinued calcium gluconate + sodium chloride 0.9% INJ 50 mL 1 gm, 10 mL, Route: IVPB, PRN, Dosing Weight 107.273, kg, PRN Abnormal Lab Resul t, Start date: 04/20/17 11:35:00 CDT, Duration: 30 day, Stop date: 05/20/17 11:3 4:00 CDT, FOR ICU USE ONLY Notes: WASTE: F/P - Sink; E - Municipal Trash Bin Start Date: 04/20/17 Stop Date: 04/21/17 Status: Discontinued carvedilol 3.125 mg, 1 tab, Route: PO, Drug form: TAB, Q12H, Dosing Weight 107.273, kg, Sta rt date: 04/20/17 21:00:00 CDT, Duration: 30 day, Stop date: 05/20/17 9:00:00 CD T Notes: Give with food. (Same As: Coreg) Start Date: 04/20/17 Stop Date: 04/23/17 Status: Discontinued carvedilol 3.125 mg oral tablet 3.125 mg=1 tab, PO, Q12H, # 180 tab, 3 Refill(s), Pharmacy: [facility] [phone] Start Date: 04/23/17 Status: Ordered Cepacol Sore Throat Elliott Sugar Free 15 mg-3.6 mg mucous membrane lozenge 1 lozenge, Route: MUCOUS MEM, Drug Form: SILVIA, Dosing Weight 107, kg, Q2H, PRN So re Throat, Start date: 04/20/17 14:37:00 CDT, Duration: 30 day, Stop date: 05/20 14:36:00 CDT Notes: Same as: Cepacol Start Date: 04/20/17 Stop Date: 04/23/17 Status: Discontinued docusate sodium 100 mg oral capsule 100 mg, 1 cap, Route: PO, Drug form: CAP, Q12H, Dosing Weight 107.273, kg, Start date: 04/20/17 21:00:00 CDT, Duration: 30 day, Stop date: 05/20/17 9:00:00 CDT Notes: (Same as: Colace) (Do Not Crush) Start Date: 04/20/17 Stop Date: 04/23/17 Status: Discontinued Dulcolax Laxative 5 mg, 1 tab, Route: PO, Drug form: ECTAB, ONCE, Dosing Weight 107, kg, PRN Const ipation, Start date: 04/20/17 14:37:00 CDT Notes: (Same As: Dulcolax, Correctol) (Do Not Crush) "Do Not Crush" Start Date: 04/20/17 Stop Date: 04/23/17 Status: Discontinued heparin 5,000 unit, 1 mL, Route: SUB-Q, Drug form: INJ, Q12H, Dosing Weight 107.273, kg, Start date: 04/20/17 21:00:00 CDT, Duration: 30 day, Stop date: 05/20/17 9:00:00 CDT Notes: porcine heparin Start Date: 04/20/17 Stop Date: 04/23/17 Status: Discontinued Heparin - one time bolus for ACS 4,000 unit, 4 mL, Route: IVP, Drug form: INJ, ONCE, kg, Priority: STAT, Start da te: 04/20/17 10:44:00 CDT, Stop date: 04/20/17 10:44:00 CDT Start Date: 04/20/17 Stop Date: 04/20/17 Status: Completed Heparin 30 unit/kg Bolus (Heparin Dosing Weight) Pharmacy To Manage, Route: IVP, PRN, Drug form: INJ, PRN, Heparin Protocol, Star t date: 04/20/17 10:44:00 CDT Stop date: 05/20/17 10:43:00 CDT, 30 day Start Date: 04/20/17 Stop Date: 04/21/17 Status: Discontinued Heparin 60 unit/kg Bolus (Heparin Dosing Weight) Pharmacy To Manage, Route: IVP, PRN, Drug form: INJ, PRN, Heparin Protocol, Star t date: 04/20/17 10:44:00 CDT Stop date: 05/20/17 10:43:00 CDT, 30 day Start Date: 04/20/17 Stop Date: 04/21/17 Status: Discontinued heparin additive 25,000 unit [12 unit/kg/hr] + Premix Diluent Dextrose 5% 500 mL 500 mL, Route: IV, Total Volume: 500 mL, Start date: 04/20/17 10:44:00 CDT, Dura tion: 30 day, Stop date: 05/20/17 10:43:00 CDT Start Date: 04/20/17 Stop Date: 04/21/17 Status: Discontinued hydrALAZINE 10 mg, 0.5 mL, Route: IV, Drug form: INJ, Q6H, Dosing Weight 107, kg, PRN Hypert ension, Start date: 04/20/17 13:05:00 CDT, Duration: 30 day, Stop date: 05/20/17 13:04:00 CDT Notes: (Same as: Apresoline)Push over 5 minutes Start Date: 04/20/17 Stop Date: 04/23/17 Status: Discontinued lisinopril 5 mg, 1 tab, Route: PO, Drug form: TAB, Daily, Dosing Weight 107.273, kg, Start date: 04/21/17 9:00:00 CDT, Duration: 30 day, Stop date: 05/20/17 9:00:00 CDT Notes: (Same as: Prinivil, Zestril) Start Date: 04/21/17 Stop Date: 04/23/17 Status: Discontinued lisinopril 5 mg oral tablet 5 mg=1 tab, PO, Daily, # 90 tab, 3 Refill(s), Pharmacy: [id number] Start Date: 04/23/17 Status: Ordered magnesium oxide 800 mg, 2 tab, Route: PO, Drug form: TAB, PRN, Dosing Weight 107.273, kg, PRN Ab normal Lab Result, FOR ICU USE ONLY, Start date: 04/20/17 11:35:00 CDT, Duration : 30 day, Stop date: 05/20/17 11:34:00 CDT Notes: (Same as: Mag-Ox 400)Magnesium oxide [id number] elemental magnesiumDose= ____mg magnesium oxide (___mg elemental magnesium) Start Date: 04/20/17 Stop Date: 04/21/17 Status: Discontinued magnesium oxide 800 mg, 2 tab, Route: PO, Drug form: TAB, PRN, Dosing Weight 107, kg, PRN Abnorm al Lab Result, For NON-ICU Patients Only., Start date: 04/21/17 11:11:00 CDT, Du ration: 30 day, Stop date: 05/21/17 11:10:00 CDT Notes: (Same as: Mag-Ox 400)Magnesium oxide [id number] elemental magnesiumDose= ____mg magnesium oxide (___mg elemental magnesium) Start Date: 04/21/17 Stop Date: 04/23/17 Status: Discontinued magnesium sulfate 2 gm, 50 mL, Route: IVPB, Drug form: INJ, PRN, Dosing Weight 107.273, kg, PRN Ab normal Lab Result, Start date: 04/20/17 11:35:00 CDT, Duration: 30 day, Stop moncho e: 05/20/17 11:34:00 CDT, FOR ICU USE ONLY Notes: WASTE: F/P - Sink; E - Municipal Trash Bin Start Date: 04/20/17 Stop Date: 04/21/17 Status: Discontinued magnesium sulfate 1 gm, 100 mL, Route: IVPB, Drug form: INJ, PRN, Dosing Weight 107, kg, PRN Abnor mal Lab Result, For NON-ICU Patients Only., Start date: 04/21/17 11:11:00 CDT, D uration: 30 day, Stop date: 05/21/17 11:10:00 CDT Notes: WASTE: F/P - Sink; E - Municipal Trash Bin Start Date: 04/21/17 Stop Date: 04/23/17 Status: Discontinued magnesium sulfate 2 gm, 50 mL, Route: IVPB, Drug form: INJ, PRN, Dosing Weight 107, kg, PRN Abnorm al Lab Result, For NON-ICU Patients Only., Start date: 04/21/17 11:11:00 CDT, Du ration: 30 day, Stop date: 05/21/17 11:10:00 CDT Notes: WASTE: F/P - Sink; E - Municipal Trash Bin Start Date: 04/21/17 Stop Date: 04/23/17 Status: Discontinued morphine Sulfate 2 mg, 1 mL, Route: IVP, Drug form: INJ, Q2H, Dosing Weight 107.273, kg, PRN Pain Score 4-6, Start date: 04/20/17 11:40:00 CDT, Duration: 30 day, Stop date: 04/28 03/13 11:39:00 CDT Notes: (Same as:MORPhine Sulfate) Start Date: 04/20/17 Stop Date: 04/23/17 Status: Discontinued morphine Sulfate 4 mg, 1 mL, Route: IVP, Drug form: INJ, Q2H, Dosing Weight 107.273, kg, PRN Pain Score 7-10, Start date: 04/20/17 11:40:00 CDT, Duration: 30 day, Stop date: 11:39:00 CDT Notes: (Same as:MORPhine Sulfate) Start Date: 04/20/17 Stop Date: 04/23/17 Status: Discontinued mupirocin topical 1 appl, Route: NASAL, Q12H, Drug form: OINT, Start date: 04/21/17 21:00:00 CDT, Duration: 10 doses or times, Stop date: 04/26/17 9:00:00 CDT, MRSA Decolonizatio n Start Date: 04/21/17 Stop Date: 04/23/17 Status: Discontinued nitroglycerin SL Tab 0.4 mg, 1 tab, Route: SL, Drug form: TAB, Q5Min, Dosing Weight 107.273, kg, PRN Chest Pain, Start date: 04/20/17 11:40:00 CDT, Duration: 3 doses or times, Stop date: Limited # of times Notes: (Same as:Nitroquick, Nitrostat)"Do Not Crush" Sublingual tablet Start Date: 04/20/17 Stop Date: 04/23/17 Status: Discontinued ondansetron 4 mg, 1 tab, Route: PO, Drug form: TAB, Q8H, Dosing Weight 107.273, kg, PRN Naus ea & Vomiting, Start date: 04/20/17 11:40:00 CDT, Duration: 30 day, Stop date: 05/20/17 11:39:00 CDT Notes: (Same as: Zofran) Start Date: 04/20/17 Stop Date: 04/23/17 Status: Discontinued pantoprazole 40 mg, 1 tab, Route: PO, Drug form: ECTAB, Before Dinner, Dosing Weight 107.273, kg, Start date: 04/20/17 16:30:00 CDT, Duration: 30 day, Stop date: 05/19/17 16 :30:00 CDT Notes: Tablet should not be chewed or crushed.(Same as: Protonix) Start Date: 04/20/17 Stop Date: 04/23/17 Status: Discontinued potassium chloride 20 mEq, 1 tab, Route: PO, Drug form: ERTAB, PRN, Dosing Weight 107.273, kg, PRN Abnormal Lab Result, Start date: 04/20/17 11:35:00 CDT, Duration: 30 day, Stop d ate: 05/20/17 11:34:00 CDT, FOR ICU USE ONLY Notes: (Same as: K-Dur 20)"Do Not Crush" With food and full glass of water Start Date: 04/20/17 Stop Date: 04/21/17 Status: Discontinued potassium chloride 20 mEq, 15 mL, Route: NJ, Drug form: LIQ, PRN, Dosing Weight 107.273, kg, PRN Ab normal Lab Result, Start date: 04/20/17 11:35:00 CDT, Duration: 30 day, Stop moncho e: 05/20/17 11:34:00 CDT, FOR ICU USE ONLY Notes: (Same as: Potassium Chloride) Start Date: 04/20/17 Stop Date: 04/21/17 Status: Discontinued potassium chloride 20 mEq, 100 mL, Route: IVPB, Drug form: INJ, PRN, Dosing Weight 107.273, kg, PRN Abnormal Lab Result, Via central line, Start date: 04/20/17 11:35:00 CDT, Durat ion: 30 day, Stop date: 05/20/17 11:34:00 CDT, FOR ICU USE ONLY Notes: (Same as: KCL) Infuse no faster than 10 mEq/hr if given peripherally. Start Date: 04/20/17 Stop Date: 04/21/17 Status: Discontinued potassium chloride 10 mEq, 100 mL, Route: IVPB, Drug form: INJ, PRN, Dosing Weight 107.273, kg, PRN Abnormal Lab Result, Via peripheral line, Start date: 04/20/17 11:35:00 CDT, Du ration: 30 day, Stop date: 05/20/17 11:34:00 CDT, FOR ICU USE ONLY Notes: Infuse at a rate of 10 mEq/hr.(Same as: KCL) Start Date: 04/20/17 Stop Date: 04/21/17 Status: Discontinued potassium chloride 20 mEq, 15 mL, Route: NJ, Drug form: LIQ, PRN, Dosing Weight 107, kg, PRN Abnorm al Lab Result, For NON-ICU Patients Only, Start date: 04/21/17 11:11:00 CDT, Dur ation: 30 day, Stop date: 05/21/17 11:10:00 CDT Notes: (Same as: Potassium Chloride) Start Date: 04/21/17 Stop Date: 04/23/17 Status: Discontinued potassium chloride 10 mEq, 100 mL, Route: IVPB, Drug form: INJ, PRN, Dosing Weight 107, kg, PRN Abn ormal Lab Result, For NON-ICU Patients Only, Start date: 04/21/17 11:11:00 CDT, Duration: 30 day, Stop date: 05/21/17 11:10:00 CDT Notes: Infuse at a rate of 10 mEq/hr.(Same as: KCL) Start Date: 04/21/17 Stop Date: 04/23/17 Status: Discontinued potassium chloride 20 mEq, 1 tab, Route: PO, Drug form: ERTAB, PRN, Dosing Weight 107, kg, PRN Abno rmal Lab Result, For NON-ICU Patients Only, Start date: 04/21/17 11:11:00 CDT, D uration: 30 day, Stop date: 05/21/17 11:10:00 CDT Notes: (Same as: K-Dur 20)"Do Not Crush" With food and full glass of water Start Date: 04/21/17 Stop Date: 04/23/17 Status: Discontinued potassium phosphate + sodium chloride 0.9% INJ 250 mL 30 mmol, 10 mL, Route: IVPB, PRN, Dosing Weight 107.273, kg, PRN Abnormal Lab Re sult, Start date: 04/20/17 11:35:00 CDT, Duration: 30 day, Stop date: 05/20/17 1 1:34:00 CDT, FOR ICU USE ONLY Notes: (Same as: K Phosphate.) 1 mMol phoshate has 1.47 mEq potassium Infuse o josselyn 4 hours Start Date: 04/20/17 Stop Date: 04/21/17 Status: Discontinued potassium phosphate + sodium chloride 0.9% INJ 250 mL 45 mmol, 15 mL, Route: IVPB, PRN, Dosing Weight 107.273, kg, PRN Abnormal Lab Re sult, Start date: 04/20/17 11:35:00 CDT, Duration: 30 day, Stop date: 05/20/17 1 1:34:00 CDT, FOR ICU USE ONLY Notes: (Same as: K Phosphate.) 1 mMol phoshate has 1.47 mEq potassium Infuse o josselyn 4 hours Start Date: 04/20/17 Stop Date: 04/21/17 Status: Discontinued potassium phosphate + sodium chloride 0.9% INJ 250 mL 15 mmol, 5 mL, Route: IVPB, PRN, Dosing Weight 107.273, kg, PRN Abnormal Lab Res ult, Start date: 04/20/17 11:35:00 CDT, Duration: 30 day, Stop date: 05/20/17 11 :34:00 CDT, FOR ICU USE ONLY Notes: (Same as: K Phosphate.) 1 mMol phoshate has 1.47 mEq potassium Infuse o josselyn 4 hours Start Date: 04/20/17 Stop Date: 04/21/17 Status: Discontinued potassium phosphate + sodium chloride 0.9% INJ 250 mL 15 mmol, 5 mL, Route: IVPB, PRN, Dosing Weight 107, kg, PRN Abnormal Lab Result, For NON-ICU Patients Only., Start date: 04/21/17 11:11:00 CDT, Duration: 30 day, Stop date: 05/21/17 11:10:00 CDT Notes: (Same as: K Phosphate.) 1 mMol phoshate has 1.47 mEq potassium Infuse o josselyn 4 hours Start Date: 04/21/17 Stop Date: 04/23/17 Status: Discontinued potassium phosphate + sodium chloride 0.9% INJ 250 mL 30 mmol, 10 mL, Route: IVPB, PRN, Dosing Weight 107, kg, PRN Abnormal Lab Result , For NON-ICU Patients Only., Start date: 04/21/17 11:11:00 CDT, Duration: 30 da y, Stop date: 05/21/17 11:10:00 CDT Notes: (Same as: K Phosphate.) 1 mMol phoshate has 1.47 mEq potassium Infuse o josselyn 4 hours Start Date: 04/21/17 Stop Date: 04/23/17 Status: Discontinued potassium phosphate-sodium phosphate 250 mg-280 mg-160 mg oral powder for recons titution 2 pkt, Route: PO, Drug Form: PDR/REC, Dosing Weight 107.273, kg, PRN, PRN Abnorm al Lab Result, FOR ICU USE ONLY, Start date: 04/20/17 11:35:00 CDT, Duration: 30 day, Stop date: 05/20/17 11:34:00 CDT Notes: (Same as: Phos-NaK) Each 1.5 gm pkt has 250mg phosphorous. Mix w/2.5oz w ater and stir. Start Date: 04/20/17 Stop Date: 04/21/17 Status: Discontinued potassium phosphate-sodium phosphate 250 mg-280 mg-160 mg oral powder for recons titution 2 pkt, Route: PO, Drug Form: PDR/REC, Dosing Weight 107, kg, PRN, PRN Abnormal L ab Result, For NON-ICU Patients Only, Start date: 04/21/17 11:11:00 CDT, Duratio n: 30 day, Stop date: 05/21/17 11:10:00 CDT Notes: (Same as: Phos-NaK) Each 1.5 gm pkt has 250mg phosphorous. Mix w/2.5oz w ater and stir. Start Date: 04/21/17 Stop Date: 04/23/17 Status: Discontinued Saline Flush 0.9% 10 mL, Route: IVP, Drug Form: INJ, kg, PRN, PRN Line Flush, Start date: 04/20/17 10:44:00 CDT, Duration: 30 day, Stop date: 05/20/17 10:43:00 CDT Notes: Same as: BD Posiflush Sterile Start Date: 04/20/17 Stop Date: 04/23/17 Status: Discontinued Sodium Chloride 0.9% (Bolus) IV 250 mL, 250 ml/hr, Infuse Over: 1 hr, Route: IV, 250, Drug form: INJ, ONCE, Prio rity: STAT, kg, Start date: 04/20/17 10:44:00 CDT, Duration: 1 doses or times, S top date: 04/20/17 10:44:00 CDT Start Date: 04/20/17 Stop Date: 04/20/17 Status: Completed sodium chloride 0.9% 1000 ml INJ 750 mL 750 mL, Rate: 75 ml/hr, Infuse over: 10 hr, Route: IV, Dosing Weight 107.273 kg, Total Volume: 750, Start date: 04/20/17 11:40:00 CDT, Duration: 10 hr, Stop moncho e: 04/20/17 21:39:00 CDT Start Date: 04/20/17 Stop Date: 04/20/17 Status: Completed sodium chloride 0.9% 1000 ml INJ 750 mL 750 mL, Rate: 75 ml/hr, Infuse over: 10 hr, Route: IV, Total Volume: 750, Start date: 04/20/17 10:44:00 CDT, Duration: 1 doses or times, Stop date: 04/20/17 20: 43:00 CDT Start Date: 04/20/17 Stop Date: 04/20/17 Status: Completed sodium phosphate + sodium chloride 0.9% INJ 250 mL 45 mmol, 15 mL, Route: IVPB, PRN, Dosing Weight 107.273, kg, PRN Abnormal Lab Re sult, Start date: 04/20/17 11:35:00 CDT, Duration: 30 day, Stop date: 05/20/17 1 1:34:00 CDT, FOR ICU USE ONLY Start Date: 04/20/17 Stop Date: 04/21/17 Status: Discontinued sodium phosphate + sodium chloride 0.9% INJ 250 mL 15 mmol, 5 mL, Route: IVPB, PRN, Dosing Weight 107.273, kg, PRN Abnormal Lab Res ult, Start date: 04/20/17 11:35:00 CDT, Duration: 30 day, Stop date: 05/20/17 11 :34:00 CDT, FOR ICU USE ONLY Start Date: 04/20/17 Stop Date: 04/21/17 Status: Discontinued sodium phosphate + sodium chloride 0.9% INJ 250 mL 30 mmol, 10 mL, Route: IVPB, PRN, Dosing Weight 107.273, kg, PRN Abnormal Lab Re sult, Start date: 04/20/17 11:35:00 CDT, Duration: 30 day, Stop date: 05/20/17 1 1:34:00 CDT, FOR ICU USE ONLY Start Date: 04/20/17 Stop Date: 04/21/17 Status: Discontinued sodium phosphate + sodium chloride 0.9% INJ 250 mL 15 mmol, 5 mL, Route: IVPB, PRN, Dosing Weight 107, kg, PRN Abnormal Lab Result, For NON-ICU Patients Only., Start date: 04/21/17 11:11:00 CDT, Duration: 30 day, Stop date: 05/21/17 11:10:00 CDT Start Date: 04/21/17 Stop Date: 04/23/17 Status: Discontinued sodium phosphate + sodium chloride 0.9% INJ 250 mL 30 mmol, 10 mL, Route: IVPB, PRN, Dosing Weight 107, kg, PRN Abnormal Lab Result , For NON-ICU Patients Only., Start date: 04/21/17 11:11:00 CDT, Duration: 30 da y, Stop date: 05/21/17 11:10:00 CDT Start Date: 04/21/17 Stop Date: 04/23/17 Status: Discontinued temazepam 15 mg, 1 cap, Route: PO, Drug form: CAP, Bedtime, Dosing Weight 107.273, kg, PRN Insomnia, Start date: 04/20/17 11:40:00 CDT, Duration: 30 day, Stop date: 05/20 11:39:00 CDT Notes: (Same As: Restoril) Start Date: 04/20/17 Stop Date: 04/23/17 Status: Discontinued Tessalon Perles 200 mg, 2 cap, Route: PO, Drug form: CAP, TID, Dosing Weight 107, kg, PRN Cough, Start date: 04/20/17 14:37:00 CDT, Duration: 30 day, Stop date: 05/20/17 14:36: 00 CDT Notes: (Same As: Tessalon Perles)"Do Not Crush" Start Date: 04/20/17 Stop Date: 04/23/17 Status: Discontinued ticagrelor 90 mg, 1 tab, Route: PO, Drug form: TAB, Q12H, Dosing Weight 107.273, kg, Start date: 04/21/17 0:00:00 CDT, Duration: 30 day, Stop date: 05/20/17 12:00:00 CDT Notes: (Same as: Brilinta) Start Date: 04/21/17 Stop Date: 04/23/17 Status: Discontinued ticagrelor 180 mg, 2 tab, Route: PO, Drug form: TAB, ONCE, Dosing Weight 107.273, kg, Loadi ng dose, Start date: 04/20/17 11:50:00 CDT, Stop date: 04/20/17 11:50:00 CDT Notes: (Same as: Brilinta) Start Date: 04/20/17 Stop Date: 04/20/17 Status: Completed ticagrelor 180 mg, Route: PO, Drug form: TAB, ONCE, Dosing Weight 107.273, kg, Loading dose , Start date: 04/20/17 14:38:00 CDT, Stop date: 04/20/17 14:38:00 CDT Start Date: 04/20/17 Stop Date: 04/20/17 Status: Discontinued ticagrelor 90 mg oral tablet 90 mg=1 tab, PO, Q12H, # 180 tab, 3 Refill(s), Pharmacy: [id number] Start Date: 04/23/17 Status: Ordered Tylenol 650 mg, 2 tab, Route: PO, Drug form: TAB, Q6H, Dosing Weight 107, kg, PRN Pain S core 1-3, Start date: 04/20/17 14:38:00 CDT, Duration: 30 day, Stop date: 14:37:00 CDT Notes: Do not exceed 4 gm/day. (Same as: Tylenol) Start Date: 04/20/17 Stop Date: 04/23/17 Status: Discontinued Tylenol 650 mg, 2 tab, Route: PO, Drug form: TAB, Q6H, Dosing Weight 107, kg, PRN For Te mp > 100.4 F, Start date: 04/20/17 14:38:00 CDT, Duration: 30 day, Stop date: 05/20/17 14:37:00 CDT Notes: Do not exceed 4 gm/day. (Same as: Tylenol) Start Date: 04/20/17 Stop Date: 04/23/17 Status: Discontinued Zofran 4 mg, 2 mL, Route: IVP, Drug form: INJ, Q8H, Dosing Weight 107, kg, PRN Nausea, Start date: 04/20/17 14:38:00 CDT, Duration: 30 day, Stop date: 05/20/17 14:37:0 0 CDT Notes: (Same as: Zofran) MEDICATION WASTE Product Size: 4 mgProduct Was michelle: ___ mg Start Date: 04/20/17 Stop Date: 04/23/17 Status: Discontinued Results ELECTROLYTES 1 2 3 Most recent to oldest [Reference Range]: 140 mEq/L (04/20/17 10:39 AM) Sodium Lvl [135-145 mEq/L] 4.2 mEq/L (04/23/17 4:09 AM) 4.0 mEq/L (04/21/17 3:54 AM) 4.0 mEq/L (04/20/17 6:50 PM) Potassium Lvl [3.5-5.1 mEq/L] 106 mEq/L (04/20/17 10:39 AM) Chloride Lvl [95-109 mEq/L] 24 mEq/L (04/20/17 10:39 AM) CO2 [24-32 mEq/L] 13.8 mEq/L (04/20/17 10:39 AM) AGAP [10.0-20.0 mEq/L] CHEM PANEL 1 2 3 Most recent to oldest [Reference Range]: 1.04 mg/dL (04/20/17 2:41 PM) 0.80 mg/dL (04/20/17 10:39 AM) Creatinine Lvl [0.50-1.40 mg/dL] 84 mL/min/1.73m2 1 *NA* (04/20/17 2:41 PM) 105 mL/min/1.73m2 2 *NA* (04/20/17 10:39 AM) eGFR 18 mg/dL (04/20/17 10:39 AM) BUN [7-22 mg/dL] 127 mg/dL *HI* (04/20/17 10:39 AM) Glucose Lvl [70-99 mg/dL] 8.6 mg/dL (04/20/17 10:39 AM) Calcium Lvl [8.5-10.5 mg/dL] 4.6 mg/dL *HI* (04/23/17 4:09 AM) 3.9 mg/dL (04/22/17 4:09 AM) 3.9 mg/dL (04/21/17 3:54 AM) Phosphorus [2.5-4.5 mg/dL] 2.2 mg/dL (04/23/17 4:09 AM) 2.2 mg/dL (04/22/17 4:09 AM) 2.0 mg/dL (04/21/17 3:54 AM) Magnesium Lvl [1.8-2.4 mg/dL] 1Result Comment: The eGFR is calculated using the [...] from the National Kid[employer] Education Program ( NKDEP) which additionally recommends that when the eGFR is used in patients with extremes of body mass index for purposes of drug dosing, the eGFR should be mul tiplied by the estimated BMI. 2Result Comment: The eGFR is calculated using the [...] from the National Kid[employer] Education Program ( NKDEP) which additionally recommends that when the eGFR is used in patients with extremes of body mass index for purposes of drug dosing, the eGFR should be mul tiplied by the estimated BMI. CARDIAC ENZYMES 1 2 3 Most recent to oldest [Reference Range]: 2251 unit/L *HI* (04/20/17 6:50 PM) 2194 unit/L *HI* (04/20/17 2:40 PM) 213 unit/L *HI* (04/20/17 10:39 AM) Total CK [12-191 unit/L] 201.5 ng/mL *HI* (04/20/17 6:50 PM) 211.4 ng/mL *HI* (04/20/17 2:40 PM) 1.4 ng/mL (04/20/17 10:39 AM) CK MB [0.5-3.6 ng/mL] 9.0 *HI* (04/20/17 6:50 PM) 9.6 *HI* (04/20/17 2:40 PM) 0.7 (04/20/17 10:39 AM) CK MB Index [0.0-2.5] >40 ng/mL 1 *CRIT* (04/20/17 6:50 PM) >40 ng/mL 2 *CRIT* (04/20/17 2:40 PM) 0.09 ng/mL (04/20/17 10:39 AM) Troponin-I [0.00-0.40 ng/mL] 2 pg/mL (04/20/17 10:39 AM) BNP [<=100 pg/mL] 1Result Comment: Critical Result(s) called to Jayne LockwoodAyala at 04/20/2017 19:32 by Jeff Brannon. Read back OK. 2Result Comment: Critical Result(s) called to Jesús Poon at 04/20/2017 15:37_ by_Nadeem Hill. Read back OK. LIPIDS 1 2 3 Most recent to oldest [Reference Range]: 5.58 (04/21/17 3:54 AM) CHD Risk [4.00-7.30] 173 mg/dL (04/21/17 3:54 AM) Chol [<=199 mg/dL] 155 mg/dL *HI* (04/21/17 3:54 AM) Trig [<=149 mg/dL] 31 mg/dL *LOW* (04/21/17 3:54 AM) HDL [>=61 mg/dL] 111 mg/dL *HI* (04/21/17 3:54 AM) LDL (Calculated) [<=99 mg/dL] 31 *NA* (04/21/17 3:54 AM) VLDL HEMATOLOGY 1 2 3 Most recent to oldest [Reference Range]: 11.8 K/CMM *HI* (04/23/17 4:09 AM) 12.5 K/CMM *HI* (04/22/17 4:09 AM) 14.9 K/CMM *HI* (04/21/17 3:54 AM) WBC [3.7-10.4 K/CMM] 4.93 M/CMM (04/23/17 4:09 AM) 5.03 M/CMM (04/22/17 4:09 AM) 5.17 M/CMM (04/21/17 3:54 AM) RBC [4.70-6.10 M/CMM] 14.7 g/dL (04/23/17 4:09 AM) 15.2 g/dL (04/22/17 4:09 AM) 15.5 g/dL (04/21/17 3:54 AM) Hgb [14.0-18.0 g/dL] 43.6 % (04/23/17 4:09 AM) 44.0 % (04/22/17 4:09 AM) 45.0 % (04/21/17 3:54 AM) Hct [42.0-54.0 %] 88.4 fL (04/23/17 4:09 AM) 87.4 fL (04/22/17 4:09 AM) 87.2 fL (04/21/17 3:54 AM) MCV [80.0-94.0 fL] 29.8 pg (04/23/17 4:09 AM) 30.3 pg (04/22/17 4:09 AM) 30.0 pg (04/21/17 3:54 AM) MCH [27.0-31.0 pg] 33.7 g/dL (04/23/17 4:09 AM) 34.6 g/dL (04/22/17 4:09 AM) 34.4 g/dL (04/21/17 3:54 AM) MCHC [32.0-36.0 g/dL] 13.2 % (04/23/17 4:09 AM) 12.9 % (04/22/17 4:09 AM) 13.0 % (04/21/17 3:54 AM) RDW [11.5-14.5 %] 204 K/CMM (04/23/17 4:09 AM) 205 K/CMM (04/22/17 4:09 AM) 218 K/CMM (04/21/17 3:54 AM) Platelet [133-450 K/CMM] 9.1 fL (04/23/17 4:09 AM) 8.9 fL (04/22/17 4:09 AM) 8.9 fL (04/21/17 3:54 AM) MPV [7.4-10.4 fL] 61.4 % (04/23/17 4:09 AM) 70.5 % (04/22/17 4:09 AM) 67.7 % (04/21/17 3:54 AM) Segs [45.0-75.0 %] 24.8 % (04/23/17 4:09 AM) 16.3 % *LOW* (04/22/17 4:09 AM) 20.6 % (04/21/17 3:54 AM) Lymphocytes [20.0-40.0 %] 11.8 % (04/23/17 4:09 AM) 11.4 % (04/22/17 4:09 AM) 10.8 % (04/21/17 3:54 AM) Monocytes [2.0-12.0 %] 1.7 % (04/23/17 4:09 AM) 1.4 % (04/22/17 4:09 AM) 0.6 % (04/21/17 3:54 AM) Eosinophils [0.0-4.0 %] 0.3 % (04/23/17 4:09 AM) 0.4 % (04/22/17 4:09 AM) 0.3 % (04/21/17 3:54 AM) Basophils [0.0-1.0 %] 7.3 K/CMM (04/23/17 4:09 AM) 8.8 K/CMM *HI* (04/22/17 4:09 AM) 10.0 K/CMM *HI* (04/21/17 3:54 AM) Segs-Bands # [1.5-8.1 K/CMM] 2.9 K/CMM (04/23/17 4:09 AM) 2.0 K/CMM (04/22/17 4:09 AM) 3.1 K/CMM (04/21/17 3:54 AM) Lymphocytes # [1.0-5.5 K/CMM] 1.4 K/CMM *HI* (04/23/17 4:09 AM) 1.4 K/CMM *HI* (04/22/17 4:09 AM) 1.6 K/CMM *HI* (04/21/17 3:54 AM) Monocytes # [0.0-0.8 K/CMM] 0.2 K/CMM (04/23/17 4:09 AM) 0.2 K/CMM (04/22/17 4:09 AM) 0.1 K/CMM (04/21/17 3:54 AM) Eosinophils # [0.0-0.5 K/CMM] 0.1 K/CMM (04/22/17 4:09 AM) 0.1 K/CMM (04/21/17 3:54 AM) 0.1 K/CMM (04/20/17 10:39 AM) Basophils # [0.0-0.2 K/CMM] 14.3 seconds (04/20/17 10:39 AM) PT [12.0-14.7 seconds] 1.09 (04/20/17 10:39 AM) INR [0.85-1.17] 25.7 seconds (04/20/17 10:39 AM) PTT [22.9-35.8 seconds] Immunizations Given and Recorded Vaccine Date Status [...] Smoking Cessation Counseling No Assessment and Plan Extracted from: Title: ICU Admission H&P * Author: Carlos Ortiz NP Date: 04/20/17 Patient: MAYRA STONE Age: 51 years Sex: Male : 1965 Associated Diagnoses: None Author: Carlos Ortiz NP Basic Information Present at bedside: Family member, Medical personnel. Source of history: Self, Family member, Medical record. History limitation: None. Advance directive: Full code. History of Present Illness Mr. Stone is a 51 year old male with no past medical history was brought to the ER today with chest pain. According to the patient he started having left sided chest pain, today morning while he was driving to his work. No prior history of chest pain,has h/o smoking and his last doctor visit was in august. He called 911, ASA given by EMS, EKG done showed ST elevation V1 through V3, code STEMI was initiated and taken the [facility]. did left heart cath with stent to LAD and transfered the patient to CVICU post operatively. Seen the patient in CVICU, awake, alert, no c/o chest pain, no sob or distress,hemodynamically stable, right femoral sheath in place, no bleeding or hematoma,palpable pedal pulses. Review of Systems Constitutional: No fever, No chills. Respiratory: No shortness of breath, No cough, No wheezing. Cardiovascular: No chest pain, No palpitations, No bradycardia, No tachycardia, No peripheral edema. Gastrointestinal: No nausea, No vomiting. Integumentary: Negative except as documented in history of present illness. Neurologic: Alert and oriented X4. Health Status Allergies: Allergic Reactions (All) Severity Not Documented NKDA- No reactions were documented. Current medications: Medications reviewed. Histories Past Medical History: No active or resolved past medical history items have been selected or recorded. Family History: No family history items have been selected or recorded. Procedure history: No active procedure history items have been selected or recorded. Social History Social & Psychosocial Habits Tobacco 04/20/2017 Use: Current every day smoker Type: Cigarettes Previous treatment: None Ready to change: Yes Concerns about tobacco use in household: No Exposure to Tobacco Smoke None Cigarette Smoking Last 365 Days Yes Reg Smoking Cessation Counseling No . Alcohol use: none. Drug use: denies drug use. Physical Examination VS/Measurements Vital Signs (last 24 hrs) Last Charted Temp Oral98.0 DegF (APRIL 20 12:22) Heart Rate [id number] bpm (APRIL 20:) Resp Rate H 25BRMIN (APRIL 20:) LKV421 mmHg (APRIL 20:) DBP83 mmHg (APRIL 20:) RuV2178 % (APRIL 20:) Bdgwjb222 kg (APRIL 20:) Kpzieb599.34 cm (APRIL 20:) BMI32.9 (APRIL 20:) General: Alert and oriented, No acute distress. Eye: Pupils are equal, round and reactive to light. HENT: Normocephalic, Oral mucosa is moist. Neck: Supple, No jugular venous distention. Respiratory: Respirations are non-labored, Breath sounds are equal, Symmetrical chest wall expansion. Cardiovascular: Normal rate, Regular rhythm, S1, S2, Good pulses equal in all extremities, No edema. Gastrointestinal: Soft, Non-distended, Normal bowel sounds. Musculoskeletal No swelling. Integumentary: Warm, Moist. Neurologic: Alert, Oriented, Normal sensory. Cognition and Speech: Oriented, Speech clear and coherent. Psychiatric: Cooperative, Appropriate mood & affect. Review / Management Results review: Labs (Last four charted values) WBC H 12.0(APRIL 20) Hgb 16.1(APRIL 20) Hct 47.6(APRIL 20) Plt 232(APRIL 20) Na 140(APRIL 20) K 3.8(APRIL 20) CO2 24(APRIL 20) Cl 106(APRIL 20) Cr 0.80(APRIL 20) BUN 18(APRIL 20) Glucose Random H 127(APRIL 20) Mg 2.1(APRIL 20) Phos 2.8(APRIL 20) Ca 8.6(APRIL 20) PT 14.3(APRIL 20) INR 1.09(APRIL 20) PTT 25.7(APRIL 20) Troponin 0.09(APRIL 20) CK MB 1.4(APRIL 20) Total CK H 213(APRIL 20) . Impression and Plan 1.Acute STEMI,s/p left heart cath,drug eluting stent to LAD,POD #0 2.CAD,75% lesion distal RCA 3.Ischemic cardiomyopathy, EF 35% 4.[place] abuse -Admit to CVICU -Post procedure management as per surgeon -Sheath removal as per -Continue ASA,Statin, BB, Brilinta -Start on PO diet -DVT & PUD prophylaxis -Will closely monitor in CVICU Addendum I personally have seen and examined the patient. This case was discussed on by Fadumo, multidisciplinary rounds. I agree with nurse practioner's documentation including review Mayra of systems, physical findings, laboratory and imaging review, assesment and plan. We will Hernán BELL continue current medical management. I have spent time managing the patient's medical on problems. 04/20/2017 I have spent 35 minutes of critical care examining the patient, reviewing laboratory and 18:00 imaging, discussing with consultants and prescribing further medical care. This time does not include procedural time.
[2018-09-13 09:15] VITALS: BP 107/77
== END | disposition home or self-care (01) ==
LOC: OR 06:45
PROVIDERS: ATTEND Internal Medicine Gastroenterology
DX: Z12.11 Encounter for screening for malignant neoplasm of colon (principal); D12.3 Benign neoplasm of transverse colon; K62.1 Rectal polyp; K57.30 Diverticulosis of large intestine without perforation or abscess without bleeding; K64.8 Other hemorrhoids; Z71.3 Dietary counseling and surveillance; I25.10 Atherosclerotic heart disease of native coronary artery without angina pectoris; I25.2 Old myocardial infarction; R00.1 Bradycardia, unspecified; E66.9 Obesity, unspecified; Z01.812 Encounter for preprocedural laboratory examination; Z79.82 Long term (current) use of aspirin; Z68.32 Body mass index [BMI] 32.0-32.9, adult; Z95.5 Presence of coronary angioplasty implant and graft
CPT/HCPCS: 36415; 45385; 85025; 93005; J2001; J2250; 45378